=== PATIENT | female | born 1970 | race Caucasian/White ===

== ENCOUNTER 2023-10-27 16:57 | Emergency (ER) | payer OTHER, SELFPAY ==
[2023-10-27 17:04] VITALS: BP 148/80; PULSE 90; RESP 20; TEMP 36.9; O2SAT 100
--- NOTE | 2023-10-27 17:30 | ED.SKABFB ---
HPI - Skin/Abscess/Foreign Bdy General Chief complaint: Skin/Abscess/Foreign Body Stated complaint: rash on arms /neck Time Seen by Provider: 10/27/23 17:31 Source: patient, RN notes reviewed and old records reviewed Mode of arrival: ambulatory Limitations: no limitations History of Present Illness HPI narrative: 53 year old female presents to [facility] care with complaints of working in her yard 12 days ago with possible exposure to poison luis and has developed excoriated rash to her posterior neck with pain and itching. Small rash areas to bilateral arms at AC areas and some to anterior chest and neck. Patient has been washing areas with antibacterial soap and has applied some antibiotic ointment without improvement. Patient denies any fevers chills or sweats, denies any difficulty with breathing or with her swallowing.. MD complaint: rash and other (exposure to poison luis) Onset (ago): day(s) (12 days) Location: neck (anterior and posterior), chest (anterior upper), LUE and RUE Severity scale (1-10): 7 Quality: burning and pruritic Treatments prior to arrival: OTC topical medication Related Data Allergies Allergy/AdvReac Type Severity Reaction Status Date / Time No Known Allergies Allergy Verified 10/27/23 17:14 Review of Systems Review of Systems: CONSTITUTIONAL: Denies fever, chills, or sweats. CARDIOVASCULAR: Denies chest pain, palpitations, or edema. RESPIRATORY: Denies cough or dyspnea. SKIN: Reports excoriated painful itching rash to posterior damir, bilateral arms AC areas upper chest and anterior left neck which is itching. MUSCULOSKELETAL: Denies joint pain or myalgia. NEUROLOGIC: Denies headache, numbness, or weakness. All systems reviewed & are unremarkable except as noted in HPI and below [facility] Past Medical History Medical History (Updated 10/29/23 @ 15:10 by Radha Eric NP) No significant past medical history Surgical History Surgical History (Updated 10/29/23 @ 15:07 by Radha Eric NP) No pertinent past surgical history Social History Social History (Updated 10/29/23 @ 15:06 by Radha Eric NP) Smoking status: Never smoker Alcohol intake: current Alcohol use details: rare social Substance use type: does not use Gender identity (if verbalized by the patient): Female Comments At time of signature, agree with nursing past medical, surgical, social and family history. There is no relevant family history pertinent to the presenting complaint Exam Narrative: GENERAL: Well-appearing, well-nourished, and in no acute distress. HEAD: Normocephalic, atraumatic. EYES: PERRLA, conjunctivae clear, and EOMI. ENT: Mucous membranes moist. Oropharynx without edema, erythema or lesions. NECK: Supple. No lymphadenopathy CHEST: Clear to auscultation. No respiratory distress.SAO2 100% on room air HEART: Regular rate and rhythm. SKIN: Warm, dry.? Patches of erythema and edema with excoriation to posterior neck, small areas or red raised rash to bilateral arms at AC regions, anterior chest and left anterior neck with itching. NEURO:? Alert and oriented x3. PSYCH: Normal mood and affect Course Course Emergency Course: Patient is aware of diagnosis, understands and agrees to treatment plan.? Anticipatory guidance given.? Patient agrees to follow-up as directed and is aware of reasons to seek care at the emergency department. Portions of this record may have been created with voice recognition software Level of Care: Express Care Visit Vital Signs Vital signs: Vital Signs Temperature 36.9 C 10/27/23 17:04 Pulse Rate 90 10/27/23 17:04 Respiratory Rate 20 10/27/23 17:04 Blood Pressure 148/80 H 10/27/23 17:04 Pulse Oximetry 100 10/27/23 17:04 Oxygen Delivery Room Air 10/27/23 17:04 Temperature 36.9 C 10/27/23 17:04 Pulse Rate 90 10/27/23 17:04 Respiratory Rate 20 10/27/23 17:04 Blood Pressure 148/80 H 10/27/23 17:04
[2023-10-27] MEDS: methylPREDNISolone ACETATE 80 MG/ML VIAL IM (17:39)
== END 2023-10-27 17:54 | disposition home or self-care (01) ==
PROVIDERS: Emergency Provider Registered Nurse
DX: L25.9 Unspecified contact dermatitis, unspecified cause (principal); L03.221 Cellulitis of neck
CPT/HCPCS: 96372; 99213; G0463; J1010